=== PATIENT | female | born 1930 | race Caucasian/White ===

== ENCOUNTER 2017-02-06 17:29 | Emergency (ER) | payer OTHER, BC ==
[~2017-02-06] VITALS: Ht 157.5 cm; Wt 60.1 kg
[~2017-02-06 17:29] MED LIST: ALBUTEROL0.63 MG/3 IH; ALBUTEROL2.5 MG/3 M IH; ALDACTONE25 MG PO; AMLODIPINE; AMLODIPINE BESY10 MG PO; ANUSOL HC,ANUCO25 MG PR; Antivert PO; CARDIZEM CD,CA180 MG PO; CHLORDIAZEPOXI1 EACH PO; COLACE100 MG PO; COUMADIN,JANTOVE1 MG PO; COUMADIN1 MG PO; Cipro PO; Coumadin,Jantoven PO; DIGOX250 MCG PO; DIGOXIN125 MCG PO; DOK PLUS TABLE1 EACH PO; FERROUS SULFAT325 MG PO; FLAGYL500 MG PO; FUROSEMIDE20 MG PO; JANUVIA25 M1 PO; LANOXIN,DIGI0.125 MG PO; LESCOL XL80 MG PO; LEVEMIR100 UNIT/2 SC; LEVOFLOXACIN500 MG PO; LIBRAX, CLI1 CAPSULE PO; MECLIZINE HCL25 M2 PO; MECLIZINE HCL25 MG PO; MIRALAX, GLYCOL1 PK1 PO; NEXIUM40 MG PO; NORVASC5 MG PO; NOVOLOG PE100 UNITS/ SC; PRAVACHOL40 MG PO; PRAVASTATIN SOD40 MG PO; PREDNISONE20 MG PO; PROAIR HFA8.5 GM IH; PROMETHAZINE HC25 M1 PO; PROTONIX40 MG PO; PROVENTIL,2.5 MG/3 M IH; PULMICORT1 MG/2 ML IH; Phenergan PO; TYLENOL REGULA325 MG PO; WARFARIN
[2017-02-06 18:12] LABS: HEMATOCRIT 38.2 % (36.0-46.0); MCH 29.1 PG (29.0-34.0); MCHC 33.5 G/DL (30.0-36.0); MCV 86.8 FL (83-99); MEAN PLAT.VOLUME 9.2 uM^3 (9.5-12.4); PLATELET COUNT 129 K/uL (156-360); RBC DIS.WIDTH-CV 13.6 % (11.8-14.6); RBC DIS.WIDTH-SD 43.6 % (39-53); WHITE BLOOD COUNT 7.2 K/uL (4.1-10.2)
[2017-02-06 18:19] LABS: CHLORIDE 103 mEq/L (99-109); POTASSIUM 3.9 mEq/L (3.7-5.4); SODIUM 135 mEq/L (136-147)
[2017-02-06 18:22] LABS: GLUCOSE 265 mg/dL (70-99)
[2017-02-06 18:23] LABS: ANION GAP 10 MEQ/L (2-14)
[2017-02-06 18:24] LABS: TOTAL BILIRUBIN 0.4 mg/dL (0.0-1.0)
[2017-02-06 18:25] LABS: ALKALINE PHOSPHATASE 169 IU/L (3-129); GFR ESTIMATE (CALCULATED) 45 mL/min/; INTER. NORMALIZED RATIO 2.5; PROTHROMBIN TIME 26.1 (9.2-11.2); PTT 35.6 (25-32)
[2017-02-06 18:26] LABS: UREA NITROGEN (BUN) 27 mg/dL (9-23)
[2017-02-06 18:44] LABS: ADD MIUA? YES; BILIRUBIN NEGATIVE; BLOOD MODERATE; COLOR STRAW ((YELLOW)); GLUCOSE (STRIP) 50; KETONES NEGATIVE; LEUKOCYTES MODERATE; NITRITE NEGATIVE; PROTEIN (STRIP) NEGATIVE; SPECIFIC GRAVITY 1.008 (1.000-1.030); UROBILINOGEN 0.2 MG/DL (0.2-1.0)
[2017-02-06 18:56] LABS: BACTERIA RARE /HPF; EPITHELIAL CELLS RARE /HPF; MUCUS TRACE /LPF; RED BLOOD CELLS 0-5 /HPF (0-5); UCUL ADDED? YES; WHITE BLOOD CELLS TNTC /HPF (0-5)
[2017-02-06] MEDS ORDERED: LEVAQUIN750 MG PO (21:01)
[2017-02-06 23:32] VITALS: BP 184/94
== END 2017-02-06 22:33 | disposition home or self-care (01) ==
LOC: EME 17:29
PROVIDERS: Emergency Medicine
DX: N39.0 Urinary tract infection, site not specified (principal); I10 Essential (primary) hypertension; E78.5 Hyperlipidemia, unspecified; K21.9 Gastro-esophageal reflux disease without esophagitis
CPT/HCPCS: 70450; 80053; 81003; 85027; 85610; 85730; 87077; 87086; 99281; 99285; J0696; J3010; J7050

== ENCOUNTER 2017-06-30 13:55 | Emergency (ER) | payer OTHER, BC ==
[~2017-06-30] VITALS: Ht 160 cm; Wt 59.0 kg
[~2017-06-30 13:55] MED LIST changes: +LEVAQUIN750 MG PO; +PULMICORT0.5 MG/21 IH; -PULMICORT1 MG/2 ML IH
[2017-06-30 15:21] LABS: HEMATOCRIT 39.5 % (36.0-46.0); MCH 27.7 PG (29.0-34.0); MCHC 32.4 G/DL (30.0-36.0); MCV 85.5 FL (83-99); MEAN PLAT.VOLUME 9.8 uM^3 (9.5-12.4); PLATELET COUNT 142 K/uL (156-360); RBC DIS.WIDTH-CV 14.5 % (11.8-14.6); RBC DIS.WIDTH-SD 45.7 % (39-53); RED BLOOD COUNT 4.62 M/uL (3.80-5.20); WHITE BLOOD COUNT 5.8 K/uL (4.1-10.2)
[2017-06-30 15:31] LABS: CHLORIDE 105 mEq/L (99-109); POTASSIUM 4.7 mEq/L (3.7-5.4); SODIUM 139 mEq/L (136-147)
[2017-06-30 15:32] LABS: GLUCOSE 93 mg/dL (70-99)
[2017-06-30 15:34] LABS: ANION GAP 9 MEQ/L (2-14)
[2017-06-30 15:36] LABS: GFR ESTIMATE (CALCULATED) 35 mL/min/
[2017-06-30 15:37] LABS: UREA NITROGEN (BUN) 42 mg/dL (9-23)
[2017-06-30 15:43] LABS: TROP-I INTERPRETATION NEGATIVE; TROPONIN-I 0.01 ng/mL (0.0-0.30)
[2017-06-30] MEDS ORDERED: COUMADIN1 MG PO (16:12)
[2017-06-30] MEDS ORDERED: DILTIAZEM 24HR120 MG PO (16:12)
[2017-06-30] MEDS ORDERED: LEVEMIR FL100 UNIT/1 SC (16:13)
[2017-06-30] MEDS ORDERED: FUROSEMIDE20 MG PO (16:13)
[2017-06-30] MEDS ORDERED: TRIMETHOPRIM100 MG PO (16:13)
[2017-06-30 17:36] VITALS: BP 138/67
== END 2017-06-30 17:37 | disposition home or self-care (01) ==
LOC: EME 13:55
PROVIDERS: Physician Assistant Medical
DX: I49.5 Sick sinus syndrome (principal); I48.2 Chronic atrial fibrillation; R42 Dizziness and giddiness; N28.9 Disorder of kidney and ureter, unspecified; Z87.440 Personal history of urinary (tract) infections; I44.7 Left bundle-branch block, unspecified; I34.1 Nonrheumatic mitral (valve) prolapse; I10 Essential (primary) hypertension; E78.5 Hyperlipidemia, unspecified; R10.9 Unspecified abdominal pain; E11.9 Type 2 diabetes mellitus without complications; Z79.4 Long term (current) use of insulin; Z85.038 Personal history of other malignant neoplasm of large intestine; Z90.49 Acquired absence of other specified parts of digestive tract; Z79.01 Long term (current) use of anticoagulants; Z82.49 Family history of ischemic heart disease and other diseases of the circulatory system
CPT/HCPCS: 71010; 80048; 81003; 84484; 85027; 93005; 99281; 99285

== ENCOUNTER 2017-07-02 09:28 | Emergency (ER) | payer OTHER, BC ==
[~2017-07-02] VITALS: Ht 160 cm; Wt 58.6 kg
[~2017-07-02 09:28] MED LIST changes: +DILTIAZEM 24HR120 MG PO; +LEVEMIR FL100 UNIT/1 SC; +TRIMETHOPRIM100 MG PO
[2017-07-02 10:12] LABS: EOSINOPHIL (%) 2.8 % (0-5); EOSINOPHIL COUNT 0.2 K/uL (0-0.3); HEMATOCRIT 40.7 % (36.0-46.0); IMMATURE GRANULOCYTE (%) 0.4 % (0.0-0.7); INSTRUMENT ABS NEUTROPHIL CT 4.2 K/uL; LYMPHOCYTE COUNT 0.7 K/uL (1.0-2.8); MCH 27.8 PG (29.0-34.0); MCHC 32.4 G/DL (30.0-36.0); MCV 85.7 FL (83-99); MEAN PLAT.VOLUME 9.4 uM^3 (9.5-12.4); MONOCYTE COUNT 0.3 K/uL (0-0.8); NEUTROPHIL (%) 77.6 % (45-76); NEUTROPHIL COUNT 4.2 K/uL (1.8-6.4); PLATELET COUNT 147 K/uL (156-360); RBC DIS.WIDTH-CV 14.5 % (11.8-14.6); RBC DIS.WIDTH-SD 45.6 % (39-53); RED BLOOD COUNT 4.75 M/uL (3.80-5.20); WHITE BLOOD COUNT 5.4 K/uL (4.1-10.2)
[2017-07-02 10:24] LABS: CHLORIDE 107 mEq/L (99-109); POTASSIUM 4.8 mEq/L (3.7-5.4); SODIUM 138 mEq/L (136-147)
[2017-07-02 10:27] LABS: GLUCOSE 146 mg/dL (70-99)
[2017-07-02 10:28] LABS: ANION GAP 8 MEQ/L (2-14)
[2017-07-02 10:29] LABS: TOTAL BILIRUBIN 0.4 mg/dL (0.0-1.0)
[2017-07-02 10:30] LABS: ALKALINE PHOSPHATASE 197 IU/L (3-129); GFR ESTIMATE (CALCULATED) 32 mL/min/
[2017-07-02 10:31] LABS: UREA NITROGEN (BUN) 38 mg/dL (9-23)
[2017-07-02 10:32] LABS: TROP-I INTERPRETATION NEGATIVE; TROPONIN-I 0.02 ng/mL (0.0-0.30)
[2017-07-02 13:11] LABS: TROP-I INTERPRETATION NEGATIVE; TROPONIN-I 0.03 ng/mL (0.0-0.30)
[2017-07-02 14:54] VITALS: BP 141/82
== END 2017-07-02 15:01 | disposition home or self-care (01) ==
LOC: EME 09:28
PROVIDERS: Emergency Medicine
DX: R00.2 Palpitations (principal); I48.2 Chronic atrial fibrillation; I11.0 Hypertensive heart disease with heart failure; I50.9 Heart failure, unspecified; E11.9 Type 2 diabetes mellitus without complications; Z79.01 Long term (current) use of anticoagulants; Z79.4 Long term (current) use of insulin; E78.5 Hyperlipidemia, unspecified; K21.9 Gastro-esophageal reflux disease without esophagitis; Z87.440 Personal history of urinary (tract) infections; Z85.038 Personal history of other malignant neoplasm of large intestine; Z88.8 Allergy status to other drugs, medicaments and biological substances
CPT/HCPCS: 80053; 83735; 84484; 85025; 93005; 99281; 99284; J7030

== ENCOUNTER 2017-07-06 07:56 | Observation (INO) | payer OTHER, BC ==
[~2017-07-06] VITALS: Ht 162.6 cm; Wt 60.8 kg
[2017-07-06 08:20] LABS: EOSINOPHIL COUNT 0.3 K/uL (0-0.3); HEMATOCRIT 39.4 % (36.0-46.0); IMMATURE GRANULOCYTE (%) 0.2 % (0.0-0.7); INSTRUMENT ABS NEUTROPHIL CT 3.6 K/uL; LYMPHOCYTE COUNT 1.3 K/uL (1.0-2.8); MCH 28.1 PG (29.0-34.0); MCV 85.3 FL (83-99); MEAN PLAT.VOLUME 9.2 uM^3 (9.5-12.4); MONOCYTE (%) 6.9 % (3-12); MONOCYTE COUNT 0.4 K/uL (0-0.8); NEUTROPHIL (%) 63.1 % (45-76); NEUTROPHIL COUNT 3.6 K/uL (1.8-6.4); PLATELET COUNT 131 K/uL (156-360); RBC DIS.WIDTH-CV 14.6 % (11.8-14.6); RBC DIS.WIDTH-SD 45.1 % (39-53); RED BLOOD COUNT 4.62 M/uL (3.80-5.20); WHITE BLOOD COUNT 5.6 K/uL (4.1-10.2)
[2017-07-06 08:25] LABS: INTER. NORMALIZED RATIO 3.6
[2017-07-06 08:28] LABS: PTT 41.5 SEC (25-37)
[2017-07-06 08:39] LABS: PROTHROMBIN TIME 42.1 SEC (10.2-12.9)
[2017-07-06 08:40] LABS: TROP-I INTERPRETATION NEGATIVE; TROPONIN-I 0.02 ng/mL (0.0-0.30)
[2017-07-06 08:43] LABS: CHLORIDE 105 mEq/L (99-109); POTASSIUM 4.9 mEq/L (3.7-5.4); SODIUM 139 mEq/L (136-147)
[2017-07-06 08:44] LABS: GLUCOSE 137 mg/dL (70-99)
[2017-07-06 08:46] LABS: ANION GAP 11 MEQ/L (2-14)
[2017-07-06 08:48] LABS: GFR ESTIMATE (CALCULATED) 32 mL/min/
[2017-07-06 08:49] LABS: UREA NITROGEN (BUN) 36 mg/dL (9-23)
[2017-07-06 14:46] LABS: TROP-I INTERPRETATION NEGATIVE; TROPONIN-I 0.12 ng/mL (0.0-0.30)
[2017-07-06 18:15] LABS: POINT-OF-CARE METER ID UU13113700
[2017-07-06 20:00] VITALS: BP 121/67
[2017-07-06 20:58] LABS: TROP-I INTERPRETATION NEGATIVE; TROPONIN-I 0.07 ng/mL (0.0-0.30)
[2017-07-06 22:30] LABS: POINT-OF-CARE METER ID UU13113700
[2017-07-06 23:43] VITALS: BP 130/62
[2017-07-07 03:40] VITALS: BP 121/64
[2017-07-07 05:16] LABS: INTER. NORMALIZED RATIO 3.5; PROTHROMBIN TIME 40.8 SEC (10.2-12.9)
[2017-07-07 07:48] LABS: HEMATOCRIT 36.7 % (36.0-46.0); MCH 27.9 PG (29.0-34.0); MCHC 32.4 G/DL (30.0-36.0); MCV 86.2 FL (83-99); MEAN PLAT.VOLUME 10.1 uM^3 (9.5-12.4); PLATELET COUNT 157 K/uL (156-360); RBC DIS.WIDTH-CV 14.8 % (11.8-14.6); RBC DIS.WIDTH-SD 46.7 % (39-53); RED BLOOD COUNT 4.26 M/uL (3.80-5.20); WHITE BLOOD COUNT 6.1 K/uL (4.1-10.2)
[2017-07-07 09:00] VITALS: BP 161/69
[2017-07-07 12:15] VITALS: BP 133/65
[2017-07-07 12:30] LABS: POINT-OF-CARE METER ID UU13113700
== END 2017-07-07 14:43 | disposition home or self-care (01) ==
LOC: EME 07:56 → EDOF 09:26 → 5WEST 09:26 → EDOF 09:26 → ENRESERV 09:27 → 5WEST 17:00
PROVIDERS: Emergency Medicine; Hospitalist; Internal Medicine
DX: I48.2 Chronic atrial fibrillation (principal); N17.9 Acute kidney failure, unspecified; E86.0 Dehydration; E11.22 Type 2 diabetes mellitus with diabetic chronic kidney disease; I12.9 Hypertensive chronic kidney disease with stage 1 through stage 4 chronic kidney disease, or unspecified chronic kidney disease; N18.3 Chronic kidney disease, stage 3 (moderate); I34.0 Nonrheumatic mitral (valve) insufficiency; I34.1 Nonrheumatic mitral (valve) prolapse; Z79.01 Long term (current) use of anticoagulants; I49.5 Sick sinus syndrome; Z85.038 Personal history of other malignant neoplasm of large intestine; Z90.49 Acquired absence of other specified parts of digestive tract; E78.5 Hyperlipidemia, unspecified; I65.23 Occlusion and stenosis of bilateral carotid arteries; E04.1 Nontoxic single thyroid nodule; Z66 Do not resuscitate; E83.52 Hypercalcemia; H81.09 Meniere's disease, unspecified ear; K21.9 Gastro-esophageal reflux disease without esophagitis; K58.9 Irritable bowel syndrome, unspecified; Z79.4 Long term (current) use of insulin; Z88.0 Allergy status to penicillin; Z88.5 Allergy status to narcotic agent; Z88.8 Allergy status to other drugs, medicaments and biological substances
CPT/HCPCS: 70450; 70551; 71010; 80048; 81003; 82948; 84443; 84484; 85025; 85027; 85610; 85730; 93005; 93306; 93880; 99202; 99281; 99285; G0378; J2405

== ENCOUNTER 2017-07-10 08:24 | Emergency (ER) | payer OTHER, BC ==
[~2017-07-10] VITALS: Ht 160 cm; Wt 59.0 kg
[2017-07-10 09:25] LABS: HEMATOCRIT 39.7 % (36.0-46.0); MCH 28.3 PG (29.0-34.0); MCHC 33.8 G/DL (30.0-36.0); MCV 83.9 FL (83-99); PLATELET COUNT 158 K/uL (156-360); RBC DIS.WIDTH-CV 14.6 % (11.8-14.6); RBC DIS.WIDTH-SD 44.6 % (39-53); RED BLOOD COUNT 4.73 M/uL (3.80-5.20); WHITE BLOOD COUNT 8.2 K/uL (4.1-10.2)
[2017-07-10 09:35] LABS: CHLORIDE 106 mEq/L (99-109); POTASSIUM 4.8 mEq/L (3.7-5.4); SODIUM 138 mEq/L (136-147)
[2017-07-10 09:37] LABS: GLUCOSE 122 mg/dL (70-99)
[2017-07-10 09:39] LABS: ANION GAP 11 MEQ/L (2-14); TOTAL BILIRUBIN 0.5 mg/dL (0.0-1.0)
[2017-07-10 09:41] LABS: ALKALINE PHOSPHATASE 180 IU/L (3-129); GFR ESTIMATE (CALCULATED) 32 mL/min/
[2017-07-10 09:42] LABS: UREA NITROGEN (BUN) 39 mg/dL (9-23)
[2017-07-10] MEDS ORDERED: FLAGYL500 MG PO (11:26)
[2017-07-10] MEDS ORDERED: ZOFRAN4 MG PO (11:26)
[2017-07-10] MEDS ORDERED: CIPRO500 MG PO (11:26)
[2017-07-10 12:36] VITALS: BP 153/69
== END 2017-07-10 12:41 | disposition home or self-care (01) ==
LOC: EME 08:24
PROVIDERS: Nurse Practitioner Family
DX: K57.92 Diverticulitis of intestine, part unspecified, without perforation or abscess without bleeding (principal); K59.00 Constipation, unspecified; Z85.038 Personal history of other malignant neoplasm of large intestine; I11.0 Hypertensive heart disease with heart failure; I50.9 Heart failure, unspecified; E11.9 Type 2 diabetes mellitus without complications; Z79.4 Long term (current) use of insulin; E78.5 Hyperlipidemia, unspecified; K21.9 Gastro-esophageal reflux disease without esophagitis; Z79.01 Long term (current) use of anticoagulants; Z88.8 Allergy status to other drugs, medicaments and biological substances
CPT/HCPCS: 74176; 80053; 81003; 85027; 99281; 99285; J2405; J7030